=== PATIENT | female | born 1950 | race Caucasian/White ===

== ENCOUNTER 2017-03-01 10:50 | Outpatient (CLI) | payer MEDICARE, OTHER ==
--- NOTE | 2017-03-04 16:05 | Mammography Report ---
DIGITAL SCREENING MAMMOGRAM: 03/01/2017 CLINICAL INDICATION: A 66-year-old nulliparous patient for screening. COMPARISON: 01/2016, 02/2014, 04/2012, 07/2010, 11/2008 TECHNIQUE: Routine CC and MLO projections were obtained of the breasts as well as bilateral laterall y exaggerated craniocaudal views. FINDINGS: Parenchymal tissue within both breasts is extremely dense, which lowers the sensitivity of mammography; however, there are no dominant masses, suspicious microcalcifications, or secondary sig ns of malignancy. In comparison to the previous studies, there are no significant changes. IMPRESSION: No mammographic evidence of malignancy. PLAN: Screening mammography is recommended annually. BIRADS category 1 - negative. STANDARD QUALIFYING STATEMENTS 1. This examination was reviewed with the aid of Computed-Aided Detection (CAD). 2. A negative or benign imaging report should not delay biopsy if clinically suspicious findings are present. Consider surgical consultation if warranted. More than 5% of cancers are not identified by i maging. 3. Dense breasts may obscure an underlying neoplasm. JOB #: [id number] EXT JOB #:[id number]
== END 2017-03-01 10:51 | disposition home or self-care (01) ==
LOC: DI.S 10:50
PROVIDERS: ATTEND Physician Assistant
DX: Z12.31 Encounter for screening mammogram for malignant neoplasm of breast (principal)
CPT/HCPCS: 77067

== ENCOUNTER 2017-10-06 16:37 | Emergency (ER) | payer MEDICARE, OTHER ==
[2017-10-06 18:12] LABS: BILIRUBIN,URINE NEGATIVE (NEGATIVE); GLUCOSE, URINE (UA) NEGATIVE (NEGATIVE); KETONES,URINE (UA) NEGATIVE (NEGATIVE); LEUKOCYTE ESTERASE, URINE SMALL (NEGATIVE); NITRITE,URINE POSITIVE (NEGATIVE); OCCULT BLOOD,URINE TRACE-INTA (NEGATIVE); PH,URINE 6.5 PH (5.0-7.5); PROTEIN,URINE NEGATIVE (NEGATIVE); UROBILINOGEN,URINE 0.2 (NORMAL) E.U./dL (NORMAL)
[2017-10-06 18:14] LABS: CLARITY,URINE CLOUDY (CLEAR)
[2017-10-06 18:19] LABS: BACTERIA,URINE Few /HPF (None Seen); RBC,URINE 0-5 /HPF (0-5); SQUAMOUS EPITHELIAL CELL,UR NONE SEEN (<= Few)
--- NOTE | 2017-10-06 18:44 | ED Physician Documentation ---
PD HPI FEMALE - Stated complaint Stated Complaint: FEMALE - Chief complaint Chief Complaint: UTI - History obtained from History obtained from: Patient - History of Present Illness Timing - onset: How many days ago (several) Timing - duration: Days Timing - details: Gradual onset, Still present (feeling worse) Associated symptoms: Back pain, Dysuria, Urinary frequency. No: Fever, Abdominal pain Similar symptoms before: Diagnosis (uti) Recently seen: Clinic (2 days ago and Rx Bactrim for UTI. No apparent culture done.) Review of Systems Constitutional: reports: Myalgias, Fatigue. denies: Fever Nose: denies: Rhinorrhea / runny nose, Congestion Throat: denies: Sore throat Cardiac: denies: Chest pain / pressure, Palpitations Respiratory: denies: Dyspnea, Cough GI: reports: Nausea. denies: Abdominal Pain, Vomiting, Diarrhea : reports: Dysuria, Frequency. 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 - Present Medications Home Medications: Ambulatory Orders Medication Instructions Recorded Confirmed Cephalexin [Keflex] 500 mg PO QID #24 capsule 10/06/17 HYDROcod/ACETAM 5/325 [[place] 5/325] 1 tab PO Q6H PRN #12 tablet 10/06/17 Ondansetron Odt [Zofran] 4 mg TL Q6H PRN #15 tablet 10/06/17 Temazepam 7.5 mg DAILY 10/06/17 10/06/17 Valacyclovir HCl [Valacyclovir] 500 mg DAILY 10/06/17 10/06/17 - Allergies Allergies/Adverse Reactions: Allergies Allergy/AdvReac Type Severity Reaction Status Date / Time codeine Allergy Mild Nausea Verified 10/06/17 17:06 - Social History Does the pt smoke?: No Smoking Status: Never smoker Does the pt drink ETOH?: Yes Does the pt have substance abuse?: No - Immunizations Immunizations are current?: Yes - POLST Patient has POLST: No PD ED PE NORMAL - Vitals Vital signs reviewed: Yes - General General: Alert and oriented X 3, Well developed/nourished, Other (appears uncomfortable and expresses fatigue and weakness. ) - HEENT HEENT: Pharynx benign - Neck Neck: Supple, no meningeal sign, No adenopathy - Cardiac Cardiac: RRR, No murmur - Respiratory Respiratory: Clear bilaterally - Abdomen Abdomen: Normal bowel sounds, Soft, Non tender - Female Female : Deferred - Rectal Rectal: Deferred - Back Back: Other (mild CVA tenderness both sides. ) - Derm Derm: Normal color, Warm and dry - Extremities Extremities: No tenderness to palpate, Normal ROM s pain, No edema, No calf tenderness / cord - Neuro Neuro: Alert and oriented X 3, No motor deficit, Normal speech Results - Vitals Vitals: Oxygen O2 Source Room air - Labs Labs: Microbiology 10/06/17 17:50 Urine Culture - Final Urine,Clean Catch Escherichia Coli Laboratory Tests 10/06/17 10/06/17 10/06/17 17:50 19:12 19:12 WBC 7.4 RBC 3.99 L Hgb 13.2 Hct 39.7 MCV 99.6 H MCH 33.1 H MCHC 33.2 RDW 12.5 Plt Count 232 MPV 7.8 L Neut # (Auto) 5.1 Lymph # (Auto) 1.8 [place] # (Auto) 0.5 Eos # (Auto) 0.0 Baso # (Auto) 0.0 Absolute Nucleated RBC 0.00 Nucleated RBC % 0.0 Sodium 132 L Potassium 4.5 Chloride 99 L Carbon Dioxide 24 Anion Gap 9.0 BUN 6 Creatinine 0.7 Estimated GFR (MDRD) 84 L Glucose 112 H Lactic Acid Calcium 9.2 Total Bilirubin 0.8 AST 23 ALT 36 Alkaline Phosphatase 94 Total Protein 6.9 Albumin 4.4 Globulin 2.5 Albumin/Globulin Ratio 1.8 Lipase 23 Urine Color YELLOW Urine Clarity CLOUDY Urine pH 6.5 Ur Specific [place] 1.010 Urine Protein NEGATIVE Urine Glucose (UA) NEGATIVE Urine Ketones NEGATIVE Urine Occult Blood TRACE-INTA Urine Nitrite POSITIVE H Urine Bilirubin NEGATIVE Urine Urobilinogen 0.2 (NORMAL) Ur Leukocyte Esterase SMALL H Urine RBC 0-5 Urine WBC 11-25 H Ur Squamous Epith Cells NONE SEEN Urine Bacteria Few Ur Microscopic Review INDICATED Urine Culture Comments INDICATED 10/06/17 19:12 WBC RBC Hgb Hct MCV MCH MCHC RDW Plt Count MPV Neut # (Auto) Lymph # (Auto) [place] # (Auto) Eos # (Auto) Baso # (Auto) Absolute Nucleated RBC Nucleated RBC % Sodium Potassium Chloride Carbon Dioxide Anion Gap BUN Creatinine Estimated GFR (MDRD) Glucose Lactic Acid 0.8 Calcium Total Bilirubin AST ALT Alkaline Phosphatase Total Protein Albumin Globulin Albumin/Globulin Ratio Lipase Urine Color Urine Clarity Urine pH Ur Specific [place] Urine Protein Urine Glucose (UA) Urine Ketones Urine Occult Blood Urine Nitrite Urine Bilirubin Urine Urobilinogen Ur Leukocyte Esterase Urine RBC Urine WBC Ur Squamous Epith Cells Urine Bacteria Ur Microscopic Review Urine Culture Comments PD MEDICAL DECISION MAKING - ED course Complexity details: reviewed results, re-evaluated patient (feeling improved with some fluids and pain meds/antiemetics. ), considered differential (has UTI symptoms and then seems in pain generally and feeling weak, but does not seem septic per se. ), d/w patient Departure - Departure Disposition: Home, Self Care Clinical Impression: Pyelonephritis Urinary tract infection Qualifiers: Urinary tract infection type: site unspecified Hematuria presence: without hematuria Qualified Code(s): N39.0 - Urinary tract infection, site not specified Condition: Stable Record reviewed to determine appropriate education?: Yes Instructions: ED UTI Cystitis Female Follow-Up: Aleena Claire PA [Primary Care Provider] - Prescriptions: Cephalexin [Keflex] 500 mg PO QID #24 capsule HYDROcod/ACETAM 5/325 [[place] 5/325] 1 tab PO Q6H PRN #12 tablet PRN Reason: Pain Ondansetron Odt [Zofran] 4 mg TL Q6H PRN #15 tablet PRN Reason: Nausea / Vomiting Comments: Drink lots of fluids. Ondansetron if needed for nausea. Cephalexin as prescribed for the urinary tract infection. Add Tylenol or hydrocodone if needed for pain. Recheck if not improving over the next couple of days and return sooner if worsening. Discharge Date/Time: 10/06/17 21:16
[2017-10-06] MEDS ORDERED: SODIUM CHLORIDE 0.9% 1,000 ML IV ONE (18:55)
[2017-10-06] MEDS ORDERED: cefTRIAXone 1 GM in SODIUM CHLORIDE 0.9% MINIBAG 100 ML IV STA (18:56)
[2017-10-06] MEDS ORDERED: HYDROmorphone 2 MG/ML VIAL IVP STA (18:56)
[2017-10-06] MEDS ORDERED: ONDANSETRON 4 MG/2 ML VIAL IVP STA ×2 (18:56→20:41)
[2017-10-06] MEDS ORDERED: KETOROLAC 60 MG/2 ML VIAL IVP STA (18:57)
[2017-10-06 19:21] LABS: BASOPHILS % (AUTO) 0.3 %; EOSINOPHILS % (AUTO) 0.4 %; HGB - HEMOGLOBIN 13.2 g/dL (12.0-16.0); LYMPHOCYTES # (AUTO) 1.8 10^3/uL (1.5-3.5); LYMPHOCYTES % (AUTO) 24.5 %; MEAN CORPUSCULAR HEMOGLOBIN 33.1 pg (27.0-31.0); MEAN CORPUSCULAR HGB CONC 33.2 g/dL (32.0-36.0); MEAN CORPUSCULAR VOLUME 99.6 fL (81.0-99.0); MEAN PLATELET VOLUME 7.8 fL (7.9-10.8); MONOCYTES # (AUTO) 0.5 10^3/uL (0.0-1.0); MONOCYTES % (AUTO) 6.6 %; NEUTROPHILS # (AUTO) 5.1 10^3/uL (1.5-6.6); NEUTROPHILS % (AUTO) 68.2 %; PLT - PLATELET COUNT 232 10^3/uL (130-450); RED BLOOD COUNT 3.99 10^6/uL (4.20-5.40); RED CELL DISTRIBUTION WIDTH 12.5 % (12.0-15.0); WHITE BLOOD COUNT 7.4 x10^3/uL (4.8-10.8)
[2017-10-06 19:37] LABS: ALBUMIN 4.4 g/dL (3.2-5.5); ALBUMIN/GLOBULIN RATIO 1.8 (1.0-2.2); BILIRUBIN,TOTAL 0.8 mg/dL (0.2-1.0); CALCIUM 9.2 mg/dL (8.5-10.3); CREATININE 0.7 mg/dL (0.4-1.0); TOTAL PROTEIN 6.9 g/dL (6.7-8.2)
[2017-10-06] MEDS ORDERED: ONDANSETRON ODT 4 MG Prepack 2 TL PRN (20:42)
[2017-10-06] MEDS ORDERED: HYDROcod/ACET 5/325 Prepack 4 PO STA (20:42)
[2017-10-06 21:16] VITALS: BP 134/75
== END 2017-10-06 21:16 | disposition home or self-care (01) ==
LOC: ED 16:37
DX: N12 Tubulo-interstitial nephritis, not specified as acute or chronic (principal); N39.0 Urinary tract infection, site not specified
CPT/HCPCS: 36415; 80053; 81001; 83605; 83690; 85025; 87077; 87086; 87181; 96365; 96375; 96376; 99283; J1170; 81003

== ENCOUNTER 2017-11-07 12:08 | Outpatient (CLI) | payer MEDICARE, OTHER | END 2017-11-07 12:09 | disposition critical access hospital (66) | LOC: EMS 12:08 | PROVIDERS: ATTEND Surgery | DX: R10.31 Right lower quadrant pain (principal); V91.83XA Other injury due to other accident to other powered watercraft, initial encounter; V91.23XA Fall due to collision between other powered watercraft and other watercraft or other object, initial encounter; Y92.832 Beach as the place of occurrence of the external cause; Y93.19 Activity, other involving water and watercraft | CPT/HCPCS: A0425; A0429 ==

== ENCOUNTER 2017-11-07 12:44 | Emergency (ER) | payer MEDICARE, OTHER ==
[2017-11-07] MEDS ORDERED: KETOROLAC 60 MG/2 ML VIAL IM STA (12:49)
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
[2017-11-07 13:50] LABS: BILIRUBIN,URINE NEGATIVE (NEGATIVE); GLUCOSE, URINE (UA) NEGATIVE (NEGATIVE); KETONES,URINE (UA) NEGATIVE (NEGATIVE); LEUKOCYTE ESTERASE, URINE NEGATIVE (NEGATIVE); NITRITE,URINE NEGATIVE (NEGATIVE); OCCULT BLOOD,URINE SMALL (NEGATIVE); PROTEIN,URINE NEGATIVE (NEGATIVE); UROBILINOGEN,URINE 0.2 (NORMAL) E.U./dL (NORMAL)
[2017-11-07 13:53] LABS: CLARITY,URINE CLEAR (CLEAR)
[2017-11-07 14:01] LABS: BACTERIA,URINE Few /HPF (None Seen); RBC,URINE 0-5 /HPF (0-5); SQUAMOUS EPITHELIAL CELL,UR MOD Squamous (<= Few)
--- NOTE | 2017-11-07 14:07 | XRAY Report ---
Procedure Date: 11/07/2017 Accession Number: [id number] / [id number] Procedure: XR - Ribs w/PA Chest RT CPT Code: FULL RESULT: EXAM: RIGHT RIB RADIOGRAPHY EXAM DATE: 11/07/2017 01:55 PM. CLINICAL HISTORY: R chest pain, trauma. COMPARISON: None. TECHNIQUE: 1 view of the chest and 2 views of the ribs. FINDINGS: Bones: Normal. No fracture or bone lesion. Lungs: No focal opacities. No pneumothorax. No pleural effusions. Mediastinum: Heart and mediastinal contours are unremarkable. Other: None. IMPRESSION: No rib fracture or pneumothorax. RADIA
[2017-11-07] MEDS ORDERED: oxyCOD/ACETAMIN 5 MG/325 MG TABLET PO STA (14:16)
[2017-11-07 14:29] VITALS: BP 169/92
== END 2017-11-07 14:31 | disposition home or self-care (01) ==
LOC: EDUNIT# → EDBD → ED 12:44
DX: S20.211A Contusion of right front wall of thorax, initial encounter (principal); W22.8XXA Striking against or struck by other objects, initial encounter; V94.4XXA Injury to barefoot water-skier, initial encounter; Y93.17 Activity, water skiing and wake boarding; Y92.89 Other specified places as the place of occurrence of the external cause; R03.0 Elevated blood-pressure reading, without diagnosis of hypertension
CPT/HCPCS: 71101; 81001; 96372; 99283; A9270; 81003; 87086

== ENCOUNTER 2017-11-14 15:13 | Outpatient (CLI) | payer MEDICARE, OTHER ==
[2017-11-14 15:34] LABS: BASOPHILS % (AUTO) 0.6 %; EOSINOPHILS % (AUTO) 0.2 %; HGB - HEMOGLOBIN 13.7 g/dL (12.0-16.0); LYMPHOCYTES # (AUTO) 2.7 10^3/uL (1.5-3.5); LYMPHOCYTES % (AUTO) 33.2 %; MEAN CORPUSCULAR HEMOGLOBIN 33.5 pg (27.0-31.0); MEAN CORPUSCULAR VOLUME 101.7 fL (81.0-99.0); MEAN PLATELET VOLUME 7.9 fL (7.9-10.8); MONOCYTES # (AUTO) 0.4 10^3/uL (0.0-1.0); MONOCYTES % (AUTO) 5.3 %; NEUTROPHILS # (AUTO) 4.9 10^3/uL (1.5-6.6); NEUTROPHILS % (AUTO) 60.7 %; PLT - PLATELET COUNT 260 10^3/uL (130-450); RED BLOOD COUNT 4.07 10^6/uL (4.20-5.40); RED CELL DISTRIBUTION WIDTH 13.2 % (12.0-15.0); WHITE BLOOD COUNT 8.1 x10^3/uL (4.8-10.8)
[2017-11-14 15:41] LABS: ALBUMIN/GLOBULIN RATIO 1.5 (1.0-2.2); BILIRUBIN,TOTAL 0.8 mg/dL (0.2-1.0); CALCIUM 9.1 mg/dL (8.5-10.3); CREATININE 0.6 mg/dL (0.4-1.0); TOTAL PROTEIN 6.7 g/dL (6.7-8.2)
[2017-11-14] MEDS ORDERED: IOPAMIDOL-300 50 ML VIAL ONE (15:42)
[2017-11-14] MEDS ORDERED: IOPAMIDOL-300 100 ML VIAL ONE (15:42)
[2017-11-14] MEDS ORDERED: IOPAMIDOL-300 50 ML VIAL PO ONE (17:03)
[2017-11-14] MEDS ORDERED: IOPAMIDOL-300 100 ML VIAL IVP ONE (17:05)
--- NOTE | 2017-11-14 17:20 | CT Report ---
Procedure Date: 11/14/2017 Accession Number: [id number] / [id number] Procedure: CT - Abdomen/Pelvis W/ CPT Code: FULL RESULT: EXAM: CT ABDOMEN AND PELVIS EXAM DATE: 11/14/2017 04:40 PM. CLINICAL HISTORY: TRAUMA,CHEST,BACK ABD PAIN. COMPARISONS: 03/01/2006 CT abdomen and pelvis. TECHNIQUE: Routine helical CT imaging was performed through the abdomen and pelvis. IV contrast: ISOVUE 300 100mL. Enteric contrast: No. Reconstructions: Coronal and sagittal. In accordance with CT protocol optimization, one or more of the following dose reduction techniques were utilized for this exam: automated exposure control, adjustment of mA and/or KV based on patient size, or use of iterative reconstructive technique. FINDINGS: Lung Bases: Trace bilateral pleural effusions. Liver: Normal. No masses. Gallbladder/Bile Ducts: Unremarkable. Spleen: Normal. Pancreas: Normal. Adrenal Glands: Normal. Kidneys: Subcentimeter right renal hypodensities most likely representing cysts. No evidence of hydronephrosis or acute injury. Peritoneal Cavity/Bowel: Normal. No free fluid, free air or adenopathy. No masses or acute inflammatory process. The appendix is well visualized and normal. Pelvic Organs: The uterus has been removed. The urinary bladder is unremarkable. No fluid collections. Vasculature: Mild atherosclerotic changes seen throughout the abdominal aorta and common iliac arteries however no evidence of aneurysm. Bones: Mild compression deformity of the L1 superior endplate which appears chronic. Otherwise no acute fracture seen. Other: None. IMPRESSION: 1. No acute solid or hollow abdominal viscera trauma. 2. Trace bilateral pleural effusions. RADIA The call report notification system was initiated by Dr. Ashu Sanford at 17:16 hrs on 11/14/17. The above findings were discussed with Aleena Claire by Dr. Ashu Sanford at 17:18 hrs on 11/14/17.
--- NOTE | 2017-11-15 01:56 | CT Report ---
Procedure Date: 11/14/2017 Accession Number: [id number] / [id number] Procedure: CT - Chest W/ CPT Code: FULL RESULT: EXAM: CT CHEST EXAM DATE: 11/14/2017 04:40 PM. CLINICAL HISTORY: TRAUMA,CHEST BACK ABD PAIN. COMPARISONS: None. TECHNIQUE: Routine helical CT imaging was performed through the chest. IV contrast: 100 mL Isovue-300. Reconstructions: Coronal and sagittal. In accordance with CT protocol optimization, one or more of the following dose reduction techniques were utilized for this exam: automated exposure control, adjustment of mA and/or KV based on patient size, or use of iterative reconstructive technique. FINDINGS: Lungs/Pleura: No nodules, bronchial thickening, consolidation, or edema. Pulmonary vasculature is normal. Trace bilateral pleural effusions. Atelectatic changes at the lung bases. Mediastinum: Normal. No adenopathy or masses. The heart and great vessels are normal. Bones: Unremarkable. Visualized Abdomen: Unremarkable. Other: None. IMPRESSION: 1. Trace bilateral pleural effusions. 2. Otherwise unremarkable chest CT. RADIA The call report notification system was initiated by Dr. Ashu Sanford at 17:10 hrs on 11/14/17. The above findings were discussed with Aleena Claire by Dr. Ashu Sanford at 01:55 hrs on 11/15/17.
== END 2017-11-14 15:14 | disposition home or self-care (01) ==
LOC: DI 15:13
PROVIDERS: ATTEND Physician Assistant
DX: S29.9XXA Unspecified injury of thorax, initial encounter (principal); R07.9 Chest pain, unspecified; R10.9 Unspecified abdominal pain; J90 Pleural effusion, not elsewhere classified
CPT/HCPCS: 36415; 71260; 74177; 80053; 82150; 83690; 85025; Q9967

== ENCOUNTER 2018-12-26 13:42 | Outpatient (CLI) | payer SELFPAY ==
--- NOTE | 2018-12-28 03:09 | XRAY Report ---
Reason: Left anterior rib pain Procedure Date: 12/26/2018 Accession Number: [id number] / [id number] Procedure: XR - Ribs w/PA Chest LT CPT Code: FULL RESULT: EXAM: LEFT RIB RADIOGRAPHY EXAM DATE: 12/26/2018 02:02 PM. CLINICAL HISTORY: Left anterior rib pain. COMPARISON: RIBS W/PA CHEST RT 11/07/2017 1:30 PM. TECHNIQUE: 1 view of the chest and 2 views of the ribs. FINDINGS: Bones: Possible subtle nondisplaced left sixth rib fracture. Lungs: No alveolar consolidation or pleural effusion seen. No pneumothorax. Mediastinum: Within exam limitations, heart size appears normal. Aortic atherosclerosis. Other: None. IMPRESSION: 1. Possible subtle nondisplaced left anterior sixth rib fracture. RADIA
== END 2018-12-26 13:43 | disposition home or self-care (01) ==
LOC: DI 13:42
PROVIDERS: ATTEND Family Medicine
DX: R07.81 Pleurodynia (principal)

== ENCOUNTER 2019-03-03 11:39 | Outpatient (CLI) | payer SELFPAY ==
--- NOTE | 2019-03-03 16:46 | XRAY Report ---
Reason: INJURY OF THORAX Procedure Date: 03/03/2019 Accession Number: [id number] / [id number] Procedure: XR - Ribs w/PA Chest LT CPT Code: FULL RESULT: EXAM: LEFT RIB RADIOGRAPHY EXAM DATE: 03/03/2019 12:02 PM. CLINICAL HISTORY: INJURY OF THORAX. COMPARISON: RIBS W/PA CHEST LT 12/26/2018 1:49 PM. TECHNIQUE: 1 view of the chest and 2 views of the ribs. FINDINGS: Bones: Normal. No fracture or bone lesion. Lungs: No focal opacities. No pneumothorax. No pleural effusions. Mediastinum: Heart and mediastinal contours are unremarkable. Other: None. IMPRESSION: Normal chest and rib radiography. RADIA
== END 2019-03-03 11:40 | disposition home or self-care (01) ==
LOC: DI 11:39
PROVIDERS: ATTEND Family Medicine
DX: S29.9XXD Unspecified injury of thorax, subsequent encounter (principal)

== ENCOUNTER 2022-02-14 10:13 | Outpatient (CLI) | payer MEDICARE, OTHER ==
--- NOTE | 2022-02-15 08:05 | XRAY Report ---
PROCEDURE: Elbow 3 View RT INDICATIONS: FELL ON ELBOW TECHNIQUE: 3 views of the elbow were acquired. COMPARISON: none FINDINGS: Bones: No fractures or dislocations. No suspicious bony lesions. Soft tissues: No elbow joint effusion. No suspicious soft tissue calcifications. IMPRESSION: No visualized acute fracture or dislocation. However, occult injury cannot be excluded. Recommend ynes rt interval imaging follow-up in 7-10 days as clinically indicated for additional evaluation. Reviewed by: Rand Eastman MD on 02/15/2022 8:03 AM PDT Approved by: Rand Eastman MD on 02/15/2022 8:03 AM PDT Station ID: [id number]
== END 2022-02-14 10:14 | disposition home or self-care (01) ==
LOC: DI 10:13
PROVIDERS: ATTEND Family Medicine
DX: S50.01XA Contusion of right elbow, initial encounter (principal)

== ENCOUNTER 2022-09-08 18:59 | Outpatient (CLI) | payer MEDICARE, OTHER | END 2022-09-08 19:00 | disposition EMS.NT | LOC: EMS 18:59 | DX: S01.81XA Laceration without foreign body of other part of head, initial encounter (principal); W18.39XA Other fall on same level, initial encounter; Y92.89 Other specified places as the place of occurrence of the external cause ==

== ENCOUNTER 2022-10-25 12:35 | Outpatient (CLI) | payer MEDICARE, OTHER ==
--- NOTE | 2022-10-26 12:38 | Ultrasound Report ---
LIMITED ULTRASOUND OF LEFT BREAST: 10/25/2022 CLINICAL: Palpable left breast lump. Comparison is made to exams dated: 10/25/2022 mammogram, 03/01/2017 mammogram, 01/17/2016 mammogram, a nd 02/16/2014 mammogram - [facility]. Color flow ultrasound of the left breast 2 o'clock region was performed. Nick scale images of the r eal-time examination were reviewed. There is a 1 cm x 0.6 cm x 0.3 cm oval mass with a circumscribed margin in the left breast at 2 o'nathalia ck posterior depth 9 cm from the nipple. This oval mass is hypoechoic with fatty hilum. This correl ates as palpated. IMPRESSION: PROBABLY BENIGN The 1 cm x 0.6 cm x 0.3 cm oval mass in the left breast has a differential diagnosis of a complicated cyst or a lymph node and is probably benign. A follow-up left ultrasound in 6 months is recommended to demonstrate stability. This exam was interpreted at Station ID: [id number]. Electronically Signed By: Elijah ho/brittany:10/25/2022 14:43:48 Ultrasound BI-RADS: 3 Probably benign BI-RADS CATEGORY: (3) - 3 Ultrasound [id number] 6 month follow-up LATERALITY: (L)
--- NOTE | 2022-10-26 12:38 | Mammography Report ---
BILATERAL DIGITAL DIAGNOSTIC MAMMOGRAM 3D/2D: 10/25/2022 CLINICAL: Palpable left breast lump. Comparison is made to exams dated: 03/01/2017 mammogram, 01/17/2016 mammogram, and 02/16/2014 mammogr am - [facility]. Both breasts are heterogeneously dense, which may obscure small masses (category c / 51-75% glandular tissue). No significant masses, calcifications, or other findings are seen in either breast. IMPRESSION: INCOMPLETE: NEEDS ADDITIONAL IMAGING EVALUATION There is no abnormality seen in the left breast to correspond with the palpable abnormality, however, ultrasound is recommended. Based on the Tyrer Cuzick model (a risk assessment model) the patients lifetime risk is 6.7% and her 10 year risk is 4.2%. According to the ACR, ACS, and NCCN guidelines, an annual breast MRI exam lonnie g with mammogram is recommended if the patients lifetime risk is 20% or greater. This exam was interpreted at Station ID: [id number]. NOTE: For mammograms, a report in lay terms will be sent to the patient. Approximately 15% of breast malignancies will not be visualized mammographically. In the management of a palpable breast mass, a negative mammogram must not discourage biopsy of a clinically suspicious lesion. Electronically Signed By: Elijah ho/brittany:10/25/2022 14:42:02 ACR BI-RADS Category 0: Incomplete 3340F PARENCHYMAL PATTERN: (D) - The breast(s) demonstrate(s) heterogeneously dense fibroglandular parjaimey ma. BI-RADS CATEGORY: (0) - 0 Ultrasound [id number] Immediate follow-up LATERALITY: (L)
== END 2022-10-25 12:36 | disposition home or self-care (01) ==
LOC: DI 12:35
PROVIDERS: ATTEND Student in an Organized Health Care Education/Training Program
DX: N63.21 Unspecified lump in the left breast, upper outer quadrant (principal)

== ENCOUNTER 2023-01-15 13:53 | Outpatient (CLI) | payer MEDICARE, OTHER ==
--- NOTE | 2023-01-15 15:48 | MRI Report ---
PROCEDURE: THORACIC SPINE WO INDICATIONS: COLLAPSED VERTEBRA TECHNIQUE: Noncontrast sagittal T1 spine echo and T2 fast spin echo, sagittal STIR, axial T1 and T2 fast spin ec ho through the thoracic spine. COMPARISON: Thoracic spine x-ray 11/21/2022. FINDINGS: Image quality: Excellent. Alignment and Curvature: There is normal bony alignment. Bone Marrow: Marrow is of normal overall signal. Superior endplate compression deformity at T12 is u nchanged. There is no abnormal signal to suggest acute chronicity. Spinal Cord: Visualized spinal cord is normal in size and signal. Paraspinous Soft Tissues: No paravertebral masses. Miscellaneous: On axial images, central canal and foramina appear widely patent at all scanned level s. IMPRESSION: Chronic T12 compression deformity stable. Reviewed by: Rand Eastman MD on 01/15/2023 3:47 PM PDT Approved by: Rand Eastman MD on 01/15/2023 3:47 PM PDT Station ID: [id number]
--- NOTE | 2023-01-15 20:39 | DEXA Report ---
PROCEDURE: Dexa Spine and/or Hip INDICATIONS: POST MENOPAUSAL THORACIC COMPRESSION FX TECHNIQUE: Dual energy x-ray absorptiometry (DEXA) was performed in the regions detailed below. COMPARISON: None. FINDINGS: Lumbar Spine: Bone Mineral Density 1.055 g/cm/cm,T score -1.0. Low normal Left Femoral Neck: Bone Mineral Density 0.630 g/cm/cm, T score -2.9. Osteoporosis Left Hip: Bone Mineral Density 0.710 g/cm/cm,T score -2.4. Osteopenia (T score greater or equal to -1.0: NORMAL) (T score from -1.1 to -2.4: OSTEOPENIA) (T score less than or equal to -2.5 to: OSTEOPOROSIS) IMPRESSION: Osteoporosis Patients with diagnosis of osteoporosis or osteopenia should have regular bone mineral density assess ment. For those eligible for Medicare, routine testing is allowed once every 2 years. Testing frequ ency can be increased for patients who have rapidly progressing disease or for those who are receivin g medical therapy to restore bone mass. Reviewed by: Alexandre Rivas MD on 01/15/2023 7:38 PM ABIMAEL Approved by: Alexandre Rivas MD on 01/15/2023 7:38 PM ABIMAEL Station ID: [id number]
== END 2023-01-15 13:54 | disposition home or self-care (01) ==
LOC: DI 13:53
PROVIDERS: ATTEND Family Medicine
DX: Z78.0 Asymptomatic menopausal state (principal); M81.0 Age-related osteoporosis without current pathological fracture; M48.54XD Collapsed vertebra, not elsewhere classified, thoracic region, subsequent encounter for fracture with routine healing

== ENCOUNTER 2023-06-04 12:29 | Outpatient (CLI) | payer MEDICARE, OTHER ==
--- NOTE | 2023-06-05 14:50 | Ultrasound Report ---
LIMITED ULTRASOUND OF LEFT BREAST: 06/04/2023 CLINICAL: Follow up from addtional views. Comparison is made to exams dated: 10/25/2022 ultrasound, 10/25/2022 mammogram, 03/01/2017 mammogram, 01/17/2016 mammogram, and 02/16/2014 mammogram - [facility]. Color flow and real-time ultrasound of the left breast 2 o'clock region were performed. Nick scale images of the real-time examination were reviewed. The previously seen 1.0 cm oval mass with a circumscribed margin in the left breast at 2 o'clock, 9 c m from the nipple is no longer visualized. This finding previously correlated as palpable, which pat ient reports has clinical resolved. IMPRESSION: NEGATIVE Previously described probably benign 1.0 cm mass is no longer visualized. Finding previously correlat ed as palpable, which patient reports has clinical resolved. No targeted sonographic evidence of azucena gnancy. Return to annual mammogram screening schedule is recommended, which patient will be due for in October 05. Findings and recommendations were conveyed to the patient during today's evaluation. This exam was interpreted at Station ID: [id number]. Electronically Signed By: Olesya Araya M.D., PH.D eb/:06/04/2023 13:51:49 Ultrasound BI-RADS: 1 Negative BI-RADS CATEGORY: (1) - 1 RECOMMENDATION: (ANNUAL) - Recommend routine annual screening mammography. [id number] return to screening LATERALITY: (B)
== END 2023-06-04 12:30 | disposition home or self-care (01) ==
LOC: DI 12:29
PROVIDERS: ATTEND Student in an Organized Health Care Education/Training Program
DX: R92.8 Other abnormal and inconclusive findings on diagnostic imaging of breast (principal)

== ENCOUNTER 2023-06-17 14:42 | Outpatient (CLI) | payer MEDICARE, OTHER ==
--- NOTE | 2023-06-17 17:47 | XRAY Report ---
PROCEDURE: Hip w/Pelvis 2-3V LT INDICATIONS: LEFT HIP PAIN TECHNIQUE: 3 views of the hip were acquired. COMPARISON: None. FINDINGS: Bones: No fractures or dislocations. Mild bilateral hip joint space narrowing and juxta-articular os teophytosis. Mild degenerative changes of the lower lumbar spine and bilateral SI joints. No suspicio us bony lesions. Soft tissues: No suspicious soft tissue calcifications or masses. IMPRESSION: 1.No acute bony abnormality. If there is high clinical suspicion for a radiographically occult fractu re, consider cross-sectional imaging for further evaluation. 2.Mild bilateral hip osteoarthritis. Reviewed by: Sara Mullins MD on 06/17/2023 5:46 PM PST Approved by: Sara Mullins MD on 06/17/2023 5:46 PM PST Station ID: [id number]
== END 2023-06-17 14:43 | disposition home or self-care (01) ==
LOC: DI 14:42
PROVIDERS: ATTEND Family Medicine
DX: M16.0 Bilateral primary osteoarthritis of hip (principal)

== ENCOUNTER 2023-08-08 08:51 | Outpatient (CLI) | payer MEDICARE, OTHER ==
--- NOTE | 2023-08-08 12:02 | MRI Report ---
PROCEDURE: Hip LT WO INDICATIONS: L HIP PAIN TECHNIQUE: Noncontrast coronal T1 spin echo and STIR through the bony pelvis. Coronal and axial T2 fast spin ec ho with fat saturation, sagittal T1 spin echo, and oblique axial T2 fast spin echo with fat saturatio n through the hip. COMPARISON: Left hip radiograph dated 06/17/2023. FINDINGS: Image quality: Excellent. Bones and joints: Moderate bilateral hip joint osteoarthritic changes are seen. No marrow edema. No i ntraosseous lesions or fractures. No avascular necrosis of the femoral heads. The visualized lower lumbar spine appears normally aligned. Tendons: Tendinosis and low-grade partial-thickness tear involving distal left gluteus medius and min imus tendons at their insertions on greater trochanter extending to musculotendinous junction. The il iopsoas tendon appears intact, without adjacent bursal fluid collections. Mild tendinosis involving l eft hamstring tendon origins at ischial tuberosity. Labrum and cartilage: Fraying of superior anterior labrum with T2 hyperintense signal at 1-2 o'clock position suggestive of superior anterior labral tear. Thinning of articulating cartilage over right f emoral head is also seen. The alpha angle of the femur is within normal limits at less than 55 degree s. Soft tissues: There is low-grade partial-thickness tear involving medial portion of left adductor mag nus muscle. [place] muscle or tendon signal abnormality is seen. Proximal sciatic neurovascular bundle appears normal adjacent to the hamstring tendons. No free pelvic fluid. Bladder wall thickness is normal. Genitourinary structures and bowel loops appear normal where visualized. IMPRESSION: 1. Moderate bilateral hip joint osteoarthritis. No pelvic or hip fracture. No hip dislocation. No garret dence of avascular necrosis. 2. Tendinosis and low-grade partial-thickness involving distal left gluteus medius and minimus tendon s extending to musculotendinous junction. Low-grade strain/partial thickness tear involving medial po rtion of left adductor kelly muscle. 3. Suggestion of superior anterior left hip labral tear at 1 to 2:00 position. Reviewed by: Mikael Barriga MD on 08/08/2023 12:00 PM PDT Approved by: Mikael Barriga MD on 08/08/2023 12:00 PM PDT Station ID: [id number]
== END 2023-08-08 08:52 | disposition home or self-care (01) ==
LOC: DI 08:51
PROVIDERS: ATTEND Family Medicine
DX: M16.0 Bilateral primary osteoarthritis of hip (principal); S76.012A Strain of muscle, fascia and tendon of left hip, initial encounter

== ENCOUNTER 2025-02-26 09:24 | Inpatient (IN) ==
[2025-02-26] MEDS: LACTATED RINGERS 1,000 ML IV PRN (09:33)
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
[2025-02-26] MEDS ORDERED: PROPOFOL 500 MG/50 ML 500 MG/50 ML VIAL ONE (11:52)
[2025-02-26] MEDS ORDERED: MIDAZOLAM 2 MG/2 ML VIAL ONE (11:53)
[2025-02-26] MEDS ORDERED: LIDOCAINE-MPF 2% 5 ML VIAL ONE (11:54)
--- NOTE | 2025-02-26 11:57 | Preop H&P Attestation ---
Preop H&P Attestation Preop History & Physical Preop H&P Date: 02/16/25 History & Physical Reviewed and patient examined today.: No change -: Patient seen in preoperative holding area. No changes to the H&P with date referenced above. Proceed to OR for colonoscopy. Soha Cannon DO, FACS General Surgeon, [facility]
[2025-02-26] MEDS ORDERED: fentaNYL 100 MCG/2 ML VIAL ONE (12:02)
[2025-02-26] MEDS ORDERED: METHYLENE BLUE 0.5% 50 MG/10 ML AMPULE ONE (12:24)
[2025-02-26] MEDS ORDERED: ONDANSETRON 4 MG/2 ML VIAL IVP PRN (12:35)
[2025-02-26] MEDS ORDERED: PROPOFOL 200 MG/20 ML VIAL IVP ONE (12:50)
--- NOTE | 2025-02-26 13:12 | ANESTHESIA POST OP EVALUATION ---
Anesthesia Post Eval Post Anesthesia Eval Vitals: Last Vital Signs Temp 36.9 C 02/26/25 09:48 Pulse 117 H 02/26/25 09:48 Resp 16 02/26/25 09:48 BP 187/113 H 02/26/25 09:48 Pulse Ox 98 02/26/25 09:48 CV Function Including HR & BP: Stable Pain Control: Satisfactory Nausea & Vomiting: Negative Mental Status: Baseline Respiratory Status: Airway Patent Hydration Status: Satisfactory Anesthesia Complications: None
[2025-02-26] MEDS ORDERED: oxyCODONE 5 MG TABLET ONE (13:18)
[2025-02-26] MEDS ORDERED: ACETAMINOPHEN 500 MG TABLET ONE (13:19)
[2025-02-26] MEDS: oxyCODONE 5 MG TABLET PO PRN (13:25)
[2025-02-26] MEDS: ACETAMINOPHEN 500 MG TABLET PO PRN (13:26)
[2025-02-26] MEDS ORDERED: oxyCODONE 5 MG TABLET PO PRN (15:39)
[2025-02-26] MEDS ORDERED: LIDOCAINE 2% URO-JET 5 ML SYRINGE UR PRN (15:46)
[2025-02-26] MEDS: HYDROmorphone 0.5 MG/0.5 ML SYRINGE IVP PRN (16:00)
--- NOTE | 2025-02-26 16:26 | PHARMACY PROGRESS NOTE ---
Best Possible Medication History Admit Date and Time: 02/26/25 1426 Home Medications Medication Instructions Recorded Confirmed Type valacyclovir 500 mg tablet 500 mg PO DAILY 10/06/17 History oxycodone-acetaminophen 5 mg-325 1 - 2 tab PO Q4H PRN Pain #15 tabs 11/07/17 02/22/25 Rx mg tablet (Percocet) diazepam 10 mg tablet (Valium) 5 mg PO TID PRN anxiety 12/22/24 02/26/25 History losartan 50 mg tablet 50 mg PO QDAY 12/22/2402/22 History meloxicam 15 mg tablet 15 mg PO QDAY PRN as needed 12/22/24 02/22/25 History pravastatin 10 mg tablet 10 mg PO QDAY 12/22/2402/26 History propranolol 10 mg tablet 40 mg PO .QD 12/22/24 History estradiol 0.01% (0.1 mg/gram) See Rx Instructions .Rou te 12/25/24 02/22/25 Rx vaginal cream (Estrace) .COMPLEX #42.5 grams lidocaine HCl 2 % mucosal jelly in 1 applic topical .d aily PRN 12/25/24 02/22/25 Rx applicator vaginal pain #125 mL acetaminophen 325 mg capsule 325 - 650 mg (1 - 2 x 325 mg) PO 02/09/25 02/22/25 Rx Q4H PRN pain #60 caps sodium,potassium,mag sulfates 17.5 See Rx Instructions PO .COMPLEX 02/16/25 02/22/25 Rx gram-3.13 gram-1.6 gram oral soln #354 mL (Suprep Bowel Prep Kit) temazepam 15 mg capsule 15 mg PO QPM 02/26/25 History Processed by: Pharmacy Medications reviewed in ED?: No Medication History completed: Yes Patient Interview: Completed Secondary Source(s): Pharmacy records and Insurance records [facility] Statement: As the person ultimately responsible for medication therapy, providers are able to order a medication from an existing home medication list in [facility] via the "Reconcile Routine" prior to Confirmation of that medication by it support manager. Such practice is discouraged except when the physician, in their clinical judgment, deems that a medical need exists for a medication without regard to previous use.
[2025-02-26] MEDS: D5.45NS W/20 MEQ KCL 1,000 ML IV SCH (16:41)
[2025-02-26] MEDS: METOPROLOL 5 MG/5 ML VIAL IVP PRN (16:45)
[2025-02-26] MEDS: ACETAMINOPHEN 1,000 MG/100 ML 1,000 MG/100 ML BAG IV SCH (16:55)
[2025-02-26] MEDS: SODIUM CHLORIDE FLUSH 0.9% 10 ML SYRINGE IVP SCH (19:12)
[2025-02-26] MEDS: CIPROFLOXACIN 250 MG TABLET PO ONE (20:56)
[2025-02-26] MEDS: PRAVASTATIN 10 MG TABLET PO SCH (20:58)
[2025-02-26] MEDS: TEMAZEPAM 15 MG CAPSULE PO SCH (20:59)
[2025-02-26] MEDS: hydrALAZINE INJ 20 MG/ML VIAL IVP PRN (21:02)
[2025-02-27 05:51] LABS: HCT - HEMATOCRIT 39.1 % (37.0-47.0); HGB - HEMOGLOBIN 12.4 g/dL (12.0-16.0); MEAN PLATELET VOLUME 9.2 fL (7.9-10.8); PLT - PLATELET COUNT 213 10^3/uL (130-450); RED CELL DISTRIBUTION WIDTH 13.2 % (12.0-15.0)
[2025-02-27 06:11] LABS: BUN - BLOOD UREA NITROGEN 3.0 mg/dL (6-20); CARBON DIOXIDE - CO2 23.0 mmol/L (21-32); CREATININE 0.5 mg/dL (0.6-1.3); GFR - MDRD 121.0 (>89); PHOSPHORUS 3.4 mg/dL (2.5-5.0)
[2025-02-27 06:22] LABS: BAND NEUTROPHILS % (MANUAL) 0 %; BASOPHILS # (MANUAL) 0.0 10^3/uL (0-0.1); EOSINOPHILS # (MANUAL) 0.0 10^3/uL (0-0.7)
[2025-02-27 06:34] LABS: INR 1.2 (0.8-1.2); PT - PROTHROMBIN TIME 12.8 secs (9.9-12.6)
[2025-02-27 06:51] LABS: ABNORMAL LYMPHS % (MANUAL) 2 %; LYMPHOCYTES # (MANUAL) 15.5 10^3/uL (1.5-3.5); LYMPHOCYTES % (MANUAL) 76 %; MONOCYTES # (MANUAL) 0.2 10^3/uL (0.0-1.0); NEUTROPHILS # (MANUAL) 4.2 10^3/uL (1.5-6.6)
[2025-02-27 06:53] LABS: PLATELET ESTIMATE, MANUAL NORMAL (130-450,000) (NORMAL); PLATELET MORPHOLOGY NORMAL APPEARANCE (NORMAL); RBC MORPHOLOGY (MULTIPLE) NORMAL APPEARANCE (NORMAL); WBC MORPHOLOGY (MULTIPLE) NORMAL APPEARANCE (NORMAL)
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
[2025-02-27] MEDS ORDERED: LIDOCAINE-PF 2% 10 ML AMP SUBQ ONE (07:23)
[2025-02-27] MEDS ORDERED: PROPOFOL 200 MG/20 ML VIAL IVP ONE (07:23)
[2025-02-27] MEDS ORDERED: SEVOFLURANE 250 ML LIQUID INH ONE (07:23)
[2025-02-27] MEDS ORDERED: ROCURONIUM 50 MG/5 ML VIAL ONE ×2 (07:23→08:48)
[2025-02-27] MEDS ORDERED: DEXAMETHASONE 4 MG/ML VIAL ONE ×2 (07:23→11:09)
[2025-02-27] MEDS ORDERED: ONDANSETRON 4 MG/2 ML VIAL ONE ×2 (07:23→11:09)
[2025-02-27] MEDS ORDERED: fentaNYL 100 MCG/2 ML VIAL ONE ×2 (07:25→12:59)
[2025-02-27] MEDS ORDERED: MIDAZOLAM 2 MG/2 ML VIAL ONE (07:26)
[2025-02-27] MEDS ORDERED: LIDOCAINE 1%-EPI 1:100000 20 ML MDV ONE (07:30)
[2025-02-27] MEDS ORDERED: BUPIVACAINE 0.25% PF 10 ML VIAL ONE (07:30)
[2025-02-27] MEDS ORDERED: ACETAMINOPHEN 1,000 MG/100 ML 1,000 MG/100 ML BAG IV ONE ×2 (07:49→13:02)
[2025-02-27] MEDS ORDERED: PHENYLEPHRINE HCL 0.5 MG/5 ML AMPULE ONE (08:13)
[2025-02-27] MEDS ORDERED: HYDROmorphone 1 MG/ML CARPUJECT ONE (09:00)
[2025-02-27] MEDS ORDERED: ePHEDrine 50 MG/ML VIAL IVP PRN (09:07)
[2025-02-27] MEDS ORDERED: METOCLOPRAMIDE 10 MG/2 ML VIAL IVP PRN (09:07)
[2025-02-27] MEDS ORDERED: ONDANSETRON 4 MG/2 ML VIAL IVP PRN (09:07)
[2025-02-27] MEDS ORDERED: ATROPINE ABBOJECT 1 MG/10 ML SYRINGE IVP PRN (09:07)
[2025-02-27] MEDS ORDERED: NALOXONE 0.4 MG/ML VIAL IVP PRN (09:07)
[2025-02-27] MEDS ORDERED: MORPHINE 2 MG/ML CARPUJECT IVP PRN (09:07)
[2025-02-27] MEDS ORDERED: METOPROLOL 5 MG/5 ML VIAL IVP ONE (10:06)
[2025-02-27] MEDS ORDERED: SUGAMMADEX 200 MG/2 ML VIAL IVP ONE (11:09)
[2025-02-27] MEDS ORDERED: ROPIVACAINE 0.5% PF 20 ML VIAL ONE (11:09)
--- NOTE | 2025-02-27 11:56 | OPERATIVE REPORT ---
Operative Report General Admit Date: 02/26/25 Procedure Data: Operation Date: 02/27/25 07:30 Proposed Procedures p Laparoscopic HAND-ASSISTED SIGMOID Colectomy, REVISION VAGINAL CUFF, TAKEDOWN COLOVAGINAL FISTULA(Not Applicable) - Soha Cannon DO Anesthesia Type General Case Staff Anesthesia Provider: Lavinia Soto Assisting Provider: Olu Shields Assisting Provider: Marta Trujillo Case Times Procedure Start: 02/27/25 08:39 Time out: 02/27/25 08:38 Other Other Information/Narrative: I came into the operating room with Dr. Cannon and Dr. Shields. They had identified the fistula area. I scrubbed in. I placed a speculum in the vagina and was able to see that the instrument Dr. Cannon was manipulating from above was visible thru a thin membrane into the vagina. The area of the vagina that had previously been tacked up was no looser. They felt that they would be able to oversew the vagina from above and that my assistance was not longer needed so I scrubbed out.
--- NOTE | 2025-02-27 11:58 | PROVIDER PROGRESS NOTE ---
Progress Note Progress Note Progress Note: I called patient's Jean-Pierre to update on status of surgery. Jacey is doing well and Dr. Cannon has isolated the fistula and has repaired it. They are getting ready to close the abdomen after surgery. He was thankful and will await Dr. Cannon's call after surgery is complete.
--- NOTE | 2025-02-27 12:48 | OPERATIVE REPORT ---
Operative Report General Admit Date: 02/27/25 Procedure Data: Operation Date: 02/27/25 07:30 Proposed Procedures p Laparoscopic HAND-ASSISTED SIGMOID Colectomy, REVISION VAGINAL CUFF, TAKEDOWN COLOVAGINAL FISTULA(Not Applicable) - Soha Cannon DO Anesthesia Type General Case Staff Anesthesia Provider: Lavinia Soto Assisting Provider: Olu Shields Assisting Provider: Marta Trujillo Case Times Procedure Start: 02/27/25 08:39 Time out: 02/27/25 08:38 Pre-Op Diagnosis: colovaginal fistula Post Op Diagnosis: Colovaginal fistula, perforated sigmoid diverticulum Procedure Note Intake, IV Amount (ml): 2,500 Estimated Blood Loss (ml): 100 Output, Urine Amount (ml): 250 Pathology: sigmoid colon (stitch ballard distal) with anastomotic donuts Indications: 74yoF with colovaginal fistula with 4 months of feculant drainage from vagina, no vaginal or colonic malignancy on vaginal exam under anesthesia or colonoscopy Findings: 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 Pelvic os fulgarated with bovie and oversewn with 2-0 Silk 31mm EEA stapled anastomosis with no leak Complications: none Other Other Information/Narrative: The patient was brought to the operating room with universal protocol observed throughout. General anesthesia with endotracheal tube was induced by the anesthesia service. They were positioned in low lithotomy position on the operating room table with both arms tucked. A De Jesus was placed. Ancef and Flagyl were administered. The abdomen was prepped and draped in standard sterile fashion. A timeout was performed with all members of the team being in agreement. Local anesthetic of 1% lidocaine with epinephrine mixed with Marcaine plain was injected into a lower midline infraumbilical incision, and the skin was incised sharply. The subcutaneous tissues and anterior fascia were divided with electrocautery, and the peritoneum was entered bluntly. A hand port wound protector was placed. A 5mm trocar was placed in the left mid-abdomen via direct visualization. The gel cap was attached to complete the hand port, and the abdomen was insufflated with CO2 gas to a pressure of 15 mmHg which the patient tolerated well. The laparoscope was inserted and the abdomen was inspected. Two additional 5mm trocars were placed under direct visualization: one in the left lower quadrant and one in the right lower quadrant. Attention was directed toward mobilizing the left colon and splenic flexure. Using intraperitoneal hand-assistance for retraction and laparoscopic scissors with cautery attachment, the white line of Toldt was opened along the left colic gutter, allowing medialization of the left colon and its mesentery. The splenic flexure was mobilized away from the spleen using the ligasure device, leaving Gerota's capsule and the kidney in situ and taking care to not disrupt the pancreatic tail parenchyma. The mobilized left colon was pulled into the pelvic, confirming enough length to make the colorectal anastomosis without tension. Attention was then directed toward the pelvis. The sigmoid colon was retracted medially, away from the left pelvic brim and side wall. There were dense chronic adhesions here to the side wall, that were taken down using a combination of hot scissors and finger fracture. Care was taken to ensure that the ureter was not within these adhesions. After fully releasing the sigmoid from the side wall, a 1cm perforation was observed in the left lateral sigmoid wall, corresponding with a fistula tract in the very low left lateral pelvis, which had exposed mucosa at the os. At this point Dr. Trujillo came into the operating room to complete a vaginal exam in coordination with the laparoscopic findings in the pelvis. The hand-port was removed, allowing direct access into the pelvis. Dr. Trujillo placed a speculum in the vagina, allowing visualization of the superior- most aspect of the vaginal cuff. A debakey was passed into the fistula tract from the pelvis, extending approximately 3-4 cm into the tract, at which point it could be seen in the superior aspect of the vagina by Dr. Trujillo. These findings confirmed the origin of the vaginal discharge as stool from a colovaginal fistula originating from a perforated diverticulum. The fistula was then oversewn by imbricating peritoneum over the os using a running 3-0 silk suture. At this point it was felt that the maximal benefit of laparoscopic dissection had been reached, and I decided to proceed with the remainder of the pelvic dissection in an open fashion. The gel HandPort and the trocars were removed and the abdomen desufflated. In an open fashion the remainder of the sigmoid colon was mobilized away from the lateral abdominal sidewall. The left ureter was not encountered during this dissection. Ultimately the colon was able to be mobilized down to the rectum at the peritoneal reflection. The sigmoid colon was divided proximal to the area of chronic disease with a SUELLEN blue load stapler 75 mm. The sigmoid mesentery was divided close to the colon with the LigaSure device. The rectum was transected just above the peritoneal reflection with a contour stapler. The specimen was then removed from the abdomen and a stitch was used to marii the distal aspect of the sigmoid colon and it was passed off the field for pathology. Attention was then directed toward creating the colorectal anastomosis. The distal end of the transected proximal sigmoid colon reached into the pelvis with no tension. The pursestring device was used to place a 3-0 Prolene suture at the distal end of the transected colon, and the staple line was cut off sharply. The anvil of a 31 mm EEA stapler was placed into the opened end of the sigmoid colon and secured with the Prolene suture. Dr. Shields then went to the perineal approach and advanced serial dilators up to size 31 mm transanally and up to the top of the stapled rectum. He then advanced the 31 mm EEA stapler with my direct visualization into the pelvis and deployed the spike. The anvil from the sigmoid colon was attached to the spike ensuring no twisting of the descending colon. The stapler was then closed by Dr. Shields. 2 silk stay sutures were placed across the anastomosis, and the stapler was fired. The stapler was removed and the proctoscope advanced transanally. There is no bleeding intraluminally from the anastomosis. The rectum was insufflated from t he proctoscope with the anastomosis submerged in normal saline in the pelvis, and the leak test was negative.The proctoscope was removed. The abdomen was then irrigated with warm normal saline. There was no active bleeding. Everyone then changed their gowns and gloves and proceeded with closure using a closing tray. The midline fascia was closed with 0 PDS looped suture x 2. The subcutaneous tissues were irrigated. The skin at all incisions was closed with 4-0 monocryl. Silver dressing was applied to the midline and dry gauze dressings were applied to the laparoscopic incisions. All sponge and needle counts were correct at the conclusion of the case. The patient tolerated the procedure well with no complications. The presence of a assistant manager of operations surgeon was necessary to provide exposure, tissue retraction, to assist in in suture control of vascular structures, and to facilitate fascial and skin closure during various portions of the operative procedure. The STRATEGIC PLANNING SPECIALIST performed bilateral Tap blocks. The patient was then transferred to the PACU in good condition. Soha Cannon DO, FACS General Surgeon, [facility]
[2025-02-27] MEDS: ceFAZolin (2G) 2 GM in SODIUM CHLORIDE 0.9% MINIBAG 100 ML IV ONE (12:58)
[2025-02-27] MEDS: fentaNYL 100 MCG/2 ML VIAL IVP PRN (13:00)
[2025-02-27] MEDS: ACETAMINOPHEN 1,000 MG/100 ML 1,000 MG/100 ML BAG IV ONE (13:03)
[2025-02-27] MEDS ORDERED: HYDROmorphone 0.5 MG/0.5 ML SYRINGE ONE ×2 (13:13→13:32)
[2025-02-27] MEDS: HYDROmorphone 0.5 MG/0.5 ML SYRINGE IVP PRN (13:13)
--- NOTE | 2025-02-27 13:26 | ANESTHESIA POST OP EVALUATION ---
Anesthesia Post Eval Post Anesthesia Eval Vitals: Last Vital Signs Temp 36.9 C 02/27/25 13:10 Pulse 103 H 02/27/25 13:10 Resp 17 02/27/25 13:10 BP 129/79 02/27/25 13:10 Pulse Ox 95 02/27/25 13:10 CV Function Including HR & BP: Stable Pain Control: Satisfactory Nausea & Vomiting: Negative Mental Status: Baseline Respiratory Status: Airway Patent Hydration Status: Satisfactory Anesthesia Complications: None
[2025-02-27] MEDS: LACTATED RINGERS 1,000 ML IV SCH ×2 (13:27→14:55)
[2025-02-27] MEDS: GABAPENTIN 400 MG CAPSULE PO ONE (13:35)
[2025-02-27] MEDS: CIPROFLOXACIN 400 MG/200 ML 400 MG/200 ML BAG IV SCH (14:53)
[2025-02-27] MEDS: GABAPENTIN 100 MG CAPSULE PO SCH (14:54)
--- NOTE | 2025-02-27 21:07 | PROVIDER PROGRESS NOTE ---
Subjective General Admit Date: 02/27/25 Procedure Date: 02/27/25 Post Op Days: 0 Procedure Performed: sigmoid colectomy, takedown colovaginal fistula Other Other Information/Narrative: Uncontrolled vaginal pain following bowel prep and colonoscopy yesterday, thus admitted for IV pain control and surgical intervention today. No sign of malignancy on colonoscopy. Uncomplicated lap hand-assisted sigmoid colectomy this AM, with takedown of colovaginal fistula. Origin of fistula found to be sigmoid diverticulum perforated into low left-anterior pelvic sidewall, with extraperitoneal fistula into vaginal cuff. Mild HTN but o/w HDN/AF since OR. Tolerated some clears for dinner, met DTV. Review of Systems Status of ROS: 10 or more systems reviewed and unremarkable except as noted in history and below Exam Exam Vital Signs: Vital Signs x48h Temp Pulse Pulse Resp BP BP Pulse Ox 02/27/25 20:00 36.7 C 99 16 158/96 H 95 02/27/25 15:48 36.7 C 87 16 137/78 H 98 02/27/25 15:47 36.5 C 87 137/89 H 98 02/27/25 15:25 36.4 C L 89 18 146/87 H 98 02/27/25 14:58 02/27/25 14:55 36.4 C L 87 18 110/73 95 02/27/25 14:40 36.4 C L 97 18 120/78 97 02/27/25 14:25 36.4 C L 92 18 122/79 97 02/27/25 14:10 36.2 C L 90 18 121/81 96 02/27/25 14:05 88 17 118/73 96 02/27/25 14:00 86 13 111/69 95 02/27/25 13:55 86 12 112/71 95 02/27/25 13:50 85 18 91/63 95 02/27/25 13:45 36.4 C L 84 12 103/65 94 02/27/25 13:40 95 12 106/69 92 02/27/25 13:35 96 12 121/80 97 02/27/25 13:30 97 12 123/75 97 02/27/25 13:25 36.4 C L 99 14 129/76 97 02/27/25 13:20 98 12 109/69 96 02/27/25 13:15 101 H 16 123/77 92 02/27/25 13:10 36.9 C 103 H 17 129/79 95 02/27/25 13:05 105 H 12 131/81 H 96 02/27/25 13:00 105 H 14 135/93 H 96 02/27/25 12:55 37.4 C 101 H 19 140/91 H 99 O2 Flow Rate 02/27/25 20:00 02/27/25 15:48 2 02/27/25 15:47 2 02/27/25 15:25 2 02/27/25 14:58 2 02/27/25 14:55 2 02/27/25 14:40 2 02/27/25 14:25 2 02/27/25 14:10 2 02/27/25 14:05 02/27/25 14:00 02/27/25 13:55 02/27/25 13:50 02/27/25 13:45 02/27/25 13:40 02/27/25 13:35 02/27/25 13:30 02/27/25 13:25 02/27/25 13:20 02/27/25 13:15 02/27/25 13:10 02/27/25 13:05 02/27/25 13:00 02/27/25 12:55 Constitutional normal general appearance, no apparent distress and average body habitus HENMT normocephalic Respiratory breath sounds equal bilaterally Cardiovascular normal heart rate noted and regular rhythm noted Gastrointestinal abdomen soft to palpation and nondistended silver dressing and steristrips in place. appropriate periincisional ttp. Extremities normal to inspection Neurology GCS 15 Psychiatry oriented x3 Skin skin color normal Impression/Plan Problem List (1) Colovaginal fistula: Plan 74yoF with colovaginal fistula symptomatic x 4mo, now s/p - 02/26/2025 colonoscopy (unable to pass beyond 40cm/sigmoid colon due to tethering of colon, presumably at site of fistula, no e/o malignancy) - 02/27/2025 laparoscopic hand-assisted sigmoid colectomy with takedown of col ovaginal fistula (origin found to be sigmoid diverticulum perforated into pelvic sidewall with extraperitoneal fistula tract to vagina). POD 0. ERAS pathway. MISA postop. Pain: Scheduled tylenol & gabapentin, PRN oxycodone & dilaudid. Will add toradol tomorrow if hgb stable. CV/Pulm: Resume home HTN meds tomorrow if continues to be stable overnight GI: Clears, ADAT tomorrow. Monitor for ROBF. : Anticipate some residual vaginal discharge as distal aspect of fistula heals; resume vaginal estrogen upon discharge Hira: Met DTV postop; BMP in AM Hem: No periop concerns for bleeding at this time; CBC in AM ID: [id number] Cipro/Flagyl given active stool contamination of extraperitoneal space/fistula/vagina PPX: Start lovenox tomorrow if hgb stable. Soha Cannon DO, FACS General Surgeon, [facility]
[2025-02-28 04:53] LABS: HCT - HEMATOCRIT 33.8 % (37.0-47.0); HGB - HEMOGLOBIN 10.3 g/dL (12.0-16.0); MEAN PLATELET VOLUME 9.4 fL (7.9-10.8); PLT - PLATELET COUNT 225 10^3/uL (130-450); RED CELL DISTRIBUTION WIDTH 13.6 % (12.0-15.0)
[2025-02-28 04:57] LABS: SLIDE REVIEW? Indicated
[2025-02-28 04:58] LABS: BAND NEUTROPHILS % (MANUAL) 0 %; BASOPHILS # (MANUAL) 0.0 10^3/uL (0-0.1); EOSINOPHILS # (MANUAL) 0.0 10^3/uL (0-0.7)
[2025-02-28 05:06] LABS: BUN - BLOOD UREA NITROGEN 5.0 mg/dL (6-20); CARBON DIOXIDE - CO2 20.0 mmol/L (21-32); CREATININE 0.5 mg/dL (0.6-1.3); GFR - MDRD 121.0 (>89); PHOSPHORUS 2.9 mg/dL (2.5-5.0)
[2025-02-28 05:37] LABS: ABNORMAL LYMPHS % (MANUAL) 4 %; LYMPHOCYTES # (MANUAL) 15.3 10^3/uL (1.5-3.5); LYMPHOCYTES % (MANUAL) 3 %; MONOCYTES # (MANUAL) 1.9 10^3/uL (0.0-1.0); NEUTROPHILS # (MANUAL) 9.7 10^3/uL (1.5-6.6); REACTIVE LYMPHS % (MANUAL) 50 %
[2025-02-28 05:38] LABS: PLATELET ESTIMATE, MANUAL NORMAL (130-450,000) (NORMAL); PLATELET MORPHOLOGY NORMAL APPEARANCE (NORMAL); RBC MORPHOLOGY (MULTIPLE) NORMAL APPEARANCE (NORMAL); WBC MORPHOLOGY (MULTIPLE) 2+ SMUDGE CELLS (NORMAL)
[2025-02-28 05:40] LABS: SLIDE SENT FOR PATH REVIEW? Indicated
[2025-02-28] MEDS: MAGNESIUM OXIDE 400 MG TABLET PO ONE (10:17)
--- NOTE | 2025-02-28 11:21 | PROVIDER PROGRESS NOTE ---
Subjective General Admit Date: 02/27/25 Procedure Date: 02/27/25 Post Op Days: 1 Procedure Performed: sigmoid colectomy, takedown colovaginal fistula Other Other Information/Narrative: POD1. MISA. Tolerated clears yesterday and passed flatus x1, but distended with poor pain control this AM. Ambulated in hallway. Wound Assessment Wound/Incisions: positive Dressing dry and intact Review of Systems Status of ROS: 10 or more systems reviewed and unremarkable except as noted in history and below Exam Exam Vital Signs: Vital Signs x48h Temp Pulse Resp BP Pulse Ox 02/28/25 09:00 36.5 C 112 H 18 147/91 H 96 02/28/25 08:00 36.5 C 112 H 18 147/91 H 96 02/28/25 05:19 36.7 C 104 H 16 148/89 H 96 Constitutional normal general appearance, no apparent distress and average body habitus HENMT normocephalic Respiratory breath sounds equal bilaterally Cardiovascular normal heart rate noted and regular rhythm noted Gastrointestinal distended silver dressing and steristrips in place. appropriate periincisional ttp. tympanic. Extremities normal to inspection Neurology GCS 15 Psychiatry oriented x3 Skin skin color normal Impression/Plan Problem List (1) Colovaginal fistula: Plan 74yoF with colovaginal fistula symptomatic x 4mo, now s/p - 02/26/2025 colonoscopy (unable to pass beyond 40cm/sigmoid colon due to tethering of colon, presumably at site of fistula, no e/o malignancy) - 02/27/2025 laparoscopic hand-assisted sigmoid colectomy with takedown of colovaginal fistula (origin found to be sigmoid diverticulum perforated into pelvic sidewall with extraperitoneal fistula tract to vagina). POD 1. ERAS pathway. MISA postop. Passed flatus once but is distended/tympanic. Needs better pain control (incisional now, not vaginal pain) Pain: Scheduled tylenol & gabapentin, add scheduled toradol, PRN oxycodone & dilaudid. CV/Pulm: Holding home HTN, will resume prn GI: Limited Clears, Monitor for ROBF. Place abdominal binder to help with incisional pain. : Anticipate some residual vaginal discharge as distal aspect of fistula heals; resume vaginal estrogen upon discharge Hira: Met DTV postop; BMP daily, mIVF @ 100 until better bowel function/PO intake Hem: No periop concerns for bleeding at this time; CBC daily ID: [id number] Cipro/Flagyl given active stool contamination of extraperitoneal space/fistula/vagina PPX: Hold lovenox today since adding toradol for pain, start tomorrow if hgb still stable Soha Cannon DO, FACS General Surgeon, [facility]
[2025-02-28] MEDS: KETOROLAC 15 MG/ML VIAL IVP SCH (11:34)
[2025-02-28] MEDS: D5.45NS W/20 MEQ KCL 1,000 ML IV STA (11:35)
[2025-02-28] MEDS ORDERED: LIDOCAINE JELLY 2% 6 ML JEL.PF.APP ONE (12:15)
--- NOTE | 2025-02-28 13:26 | XRAY Report ---
EXAMINATION: XR Chest for Line Placement, AP INDICATION: NG tube placement COMPARISON: None FINDINGS: TUBES/LINES: * Subdiaphragmatic enteric tube with tip overlying the inferior gastric body. LUNGS: No consolidations or edema. PLEURA: No pleural effusions. No pneumothorax. HEART/MEDIASTINUM: Unremarkable. MUSCULOSKELETAL: No acute findings. UPPER ABDOMEN: No subdiaphragmatic free air. Prominent, air-filled, stacked loops of small bowel in the mid abdomen. IMPRESSION: 1. Subdiaphragmatic enteric tube with tip overlying the distal gastric body. 2. Prominent loops of small bowel in the mid abdomen, concerning for developing ileus versus small bowel obstruction. Reviewed by: Giorgi Molina MD on 02/28/2025 1:22 PM PDT Approved by: Giorgi Molina MD on 02/28/2025 1:22 PM PDT Station ID: [id number]
--- NOTE | 2025-02-28 13:41 | PROVIDER PROGRESS NOTE ---
Subjective General Admit Date: 02/27/25 Procedure Date: 02/27/25 Post Op Days: 1 Procedure Performed: Lap sigmoid colectomy with takedown splenic flex and TD colovag fistula Other Other Information/Narrative: Patient complaining of abdominal discomfort and distention stating that she looks and feels . She is already ambulated once today in halls. Wound Assessment Wound/Incisions: positive Dressing dry and intact Review of Systems I did not perform an extensive review of systems today. The patient states that her abdomen is distended and she feels significant discomfort. She feels as though she is although she has never been . There is some difficulty controlling her postoperative pain. Exam Exam Vital Signs: Vital Signs x48h Temp Pulse Resp BP Pulse Ox 02/28/25 09:00 36.5 C 112 H 18 147/91 H 96 02/28/25 08:00 36.5 C 112 H 18 147/91 H 96 General: 74-year old female, appears stated age, well developed, well nourished, evaluated in room 2206 at [facility] MedSurg unit, her was present for the entire discussion and exam HEENT: Normocephalic, atraumatic, extraocular movement intact, mucous membranes pink and moist, sclera anicteric and not injected Neck: Did not examine Cardiac: Slightly tachycardic into the low 100s with a regular rate and rhythm without rub, gallop, or murmur Chest: Clear to auscultation bilaterally anterolaterally Abdomen: Soft, incisional tenderness, decreased bowel sounds, I did not press hard enough to evaluate hepatomegaly or splenomegaly (although her spleen was rather large visually during her operation yesterday), all the wounds were dressed without any drainage Genitourinary: Deferred Rectal: Deferred Extremities: No gross neurovascular problem, no clubbing, cyanosis or edema Gait: I did not have the patient get out of bed Psychiatric: Alert and oriented to person place and time, asks and answers questions appropriately, mood and affect appropriate ABX Reporting Has patient been on IV antibiotics over the past 48 hours?: Yes Impression/Plan Problem List (1) Colovaginal fistula: (2) S/P laparoscopic-assisted sigmoidectomy: Plan Postoperative day 1 status post laparoscopic assisted sigmoidectomy with colocolostomy and takedown of splenic flexure, closure of colovaginal fistula Patient is on the ERAS protocol. 1) FEN Will continue to support with IV fluids since oral intake seems to be increasing her abdominal distention. I have ordered a nasogastric tube to be placed as it appears that her bowel function is not returning as quickly as we would like. 2) Activity Patient doing well and ambulating in the halls. is aware and is supportive. 3) GI Place nasogastric tube to help with abdominal distention and patient discomfort. Explained that patient can take lollipops or even gum while she is walking to help induce bowel function return. Lollipops can also help if her mouth is somewhat dry. Once nasogastric tube is in place ice chips are okay. I do not want anything to increase her abdominal distention at this point in time. 4) ID White blood cell count did bump to 26 today and although this is quite high it may in fact be reactive. I will follow this tomorrow but currently there is no indication of infection or sepsis. CPT 65714
[2025-02-28] MEDS ORDERED: MAGNESIUM SULFATE 1 GM/2 ML VIAL IVP STA (13:47)
[2025-02-28] MEDS: LIDOCAINE JELLY 2% 6 ML JEL.PF.APP TOP ONE (16:55)
[2025-02-28] MEDS: MAGNESIUM SULFATE 1 GM in SODIUM CHLORIDE 0.9% 50 ML IV ONE (17:19)
[2025-03-01 05:05] LABS: HCT - HEMATOCRIT 33.7 % (37.0-47.0); HGB - HEMOGLOBIN 10.7 g/dL (12.0-16.0); MEAN PLATELET VOLUME 8.9 fL (7.9-10.8); PLT - PLATELET COUNT 203 10^3/uL (130-450); RED CELL DISTRIBUTION WIDTH 13.8 % (12.0-15.0)
[2025-03-01 05:10] LABS: ABNORMAL LYMPHS % (MANUAL) 0 %; BAND NEUTROPHILS % (MANUAL) 0 %; BASOPHILS # (MANUAL) 0.0 10^3/uL (0-0.1)
[2025-03-01 05:18] LABS: BUN - BLOOD UREA NITROGEN 6.0 mg/dL (6-20); CARBON DIOXIDE - CO2 22.0 mmol/L (21-32); CREATININE 0.4 mg/dL (0.6-1.3); GFR - MDRD 156.0 (>89); PHOSPHORUS 2.3 mg/dL (2.5-5.0)
[2025-03-01 05:32] LABS: EOSINOPHILS # (MANUAL) 0.5 10^3/uL (0-0.7); LYMPHOCYTES # (MANUAL) 13.3 10^3/uL (1.5-3.5); LYMPHOCYTES % (MANUAL) 30 %; MONOCYTES # (MANUAL) 1.0 10^3/uL (0.0-1.0); NEUTROPHILS # (MANUAL) 9.8 10^3/uL (1.5-6.6); PLATELET ESTIMATE, MANUAL NORMAL (130-450,000) (NORMAL); PLATELET MORPHOLOGY NORMAL APPEARANCE (NORMAL); RBC MORPHOLOGY (MULTIPLE) NORMAL APPEARANCE (NORMAL); REACTIVE LYMPHS % (MANUAL) 24 %; WBC MORPHOLOGY (MULTIPLE) 1+ SMUDGE CELLS (NORMAL)
[2025-03-01] MEDS: SODIUM CHLORIDE FLUSH 0.9% 10 ML SYRINGE IVP PRN (05:39)
[2025-03-01] MEDS: METOCLOPRAMIDE 10 MG/2 ML VIAL IVP PRN (05:51)
--- NOTE | 2025-03-01 09:15 | PROVIDER PROGRESS NOTE ---
Subjective General Admit Date: 02/27/25 Procedure Date: 02/27/25 Post Op Days: 2 Procedure Performed: Lap sigmoid colectomy with takedown splenic flex and TD colovag fistula Other Other Information/Narrative: Small volume emesis yesterday, NGT placed (in good position on XR) with <100cc out since then. Though she feels much better with the NGT in placed. She is passing rare flatus. Pain meds are working for her - she is requiring dilaudid. Wound Assessment Wound/Incisions: positive Dressing dry and intact Review of Systems Status of ROS: 10 or more systems reviewed and unremarkable except as noted in history and below Exam Exam Vital Signs: Vital Signs x48h Temp Pulse Pulse Resp BP BP Pulse Ox 03/01/25 07:00 80 132/84 H 03/01/25 06:52 80 132/84 H 03/01/25 06:47 81 128/83 03/01/25 06:42 82 135/82 H 03/01/25 06:38 83 16 139/91 H 90 L 03/01/25 06:37 100 162/103 H 03/01/25 06:25 160/101 H 03/01/25 05:30 36.7 C 107 H 20 97 Constitutional normal general appearance, no apparent distress and average body habitus HENMT normocephalic Respiratory breath sounds equal bilaterally Cardiovascular normal heart rate noted and regular rhythm noted Gastrointestinal abdomen soft to palpation less distended/softer, silver dressing and steristrips in place. appropriate periincisional ttp. 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 POD 2. ERAS pathway -> ileus with NGT. Passing rare flatus so hopefully ileus will not be prolonged. Pain is improved. Pain: Scheduled tyleno and toradol, anabel gabapentin, PRN oxycodone & dilaudid. CV/Pulm: Holding home HTN, will resume prn GI: NPO/NGT, Monitor for ROBF. Abdominal binder to help with incisional pain. : Anticipate some residual vaginal discharge as distal aspect of fistula heals; resume vaginal estrogen upon discharge Hira: BMP daily, mIVF @ 100 until better bowel function/PO intake Hem: No periop concerns for bleeding at this time; CBC daily ID: [id number] Cipro/Flagyl given active stool contamination of extraperitoneal space/fistula/vagina PPX: Start lovenox today Soha Cannon DO, FACS [facility] Sur[facility], [facility]
[2025-03-01] MEDS: ENOXAPARIN 40 MG/0.4 ML SYRINGE SUBQ SCH (10:24)
[2025-03-01] MEDS: MAGNESIUM SULFATE 2 GRAM 2 GM/50 ML BAG IV ONE (11:37)
[2025-03-01] MEDS: D5.45NS W/20 MEQ KCL 1,000 ML IV SCH (12:50)
[2025-03-01] MEDS: PHENOL THROAT SPRAY 177 ML MM PRN (15:19)
[2025-03-02] MEDS: MAGNESIUM SULFATE 2 GRAM 2 GM/50 ML BAG IV ONE (09:08)
[2025-03-02] MEDS: DEXTROSE-SOD CHLOR W/20 MEQ K 1,000 ML IV SCH (09:09)
[2025-03-02] MEDS: METOPROLOL 5 MG/5 ML VIAL IVP SCH (10:13)
--- NOTE | 2025-03-02 14:15 | PROVIDER PROGRESS NOTE ---
Subjective General Admit Date: 02/27/25 Procedure Date: 02/27/25 Post Op Days: 4 Procedure Performed: Lap sigmoid colectomy with takedown splenic flex and TD colovag fistula Other Other Information/Narrative: Hypertensive overnight, given hydralazine now with rebound tachycardia. Complaining of palpitations. NGT with minimal output, has been clamped for some PO meds. Passing some gas. Has developed blisters around the steristrips, has not gotten abdominal binder yet. Wound Assessment Wound/Incisions: positive Dressing dry and intact Review of Systems Status of ROS: 10 or more systems reviewed and unremarkable except as noted in history and below Exam Exam Vital Signs: Vital Signs x48h Temp Pulse Pulse Resp BP BP Pulse Ox 03/03/25 03:05 98 148/91 H 03/03/25 03:05 98 148/91 H 03/02/25 23:42 36.4 C L 103 H 20 158/101 H 95 Constitutional normal general appearance, no apparent distress and average body habitus HENMT normocephalic Respiratory breath sounds equal bilaterally Cardiovascular normal heart rate noted and regular rhythm noted Gastrointestinal abdomen soft to palpation and distended less distended/softer, silver dressing and steristrips removed 2/2 skin blistering, replaced with ABD pad + binder. appropriate periincisional ttp. 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 POD 3. ERAS pathway -> ileus with NGT. Passing more flatus so hopefully ileus will not be prolonged. Pain is improved. Pain: Scheduled tyleno and toradol, anabel gabapentin, PRN oxycodone & dilaudid. CV/Pulm: Holding home HTN. Stop prn hydralazine, start anabel 5mg metoprolol q6h GI: NPO/NGT, Monitor for ROBF. Abdominal binder to help with incisional pain. : Anticipate some residual vaginal discharge as distal aspect of fistula heals; resume vaginal estrogen upon discharge Hira: BMP daily, mIVF until better bowel function/PO intake Hem: No periop concerns for bleeding at this time; CBC daily ID: 4d Cipro/Flagyl given active stool contamination of extraperitoneal space/fistula/vagina PPX: continue lovenox Soha Cannon DO, FACS General Surgeon, [facility]
[2025-03-02] MEDS: MAGNESIUM SULFATE 2 GM in SODIUM CHLORIDE 0.9% 50 ML IV ONE (17:45)
--- NOTE | 2025-03-03 07:29 | PROVIDER PROGRESS NOTE ---
Subjective General Admit Date: 02/27/25 Procedure Date: 02/27/25 Post Op Days: 4 Procedure Performed: Lap sigmoid colectomy with takedown splenic flex and TD colovag fistula Other Other Information/Narrative: NGT with 400cc out. Passing gas. Feeling hungry. Requiring oxycodone (x2) and dilaudid (x4) for pain control. Did walk x2 yesterday. HTN improved and HR down to ~100 from 120-130 yesterday. Sense of palpitations has resolved. Wound Assessment Wound/Incisions: positive No drainage Review of Systems Status of ROS: 10 or more systems reviewed and unremarkable except as noted in history and below Exam Exam Vital Signs: Vital Signs x48h Pulse Pulse BP BP 03/03/25 03:05 98 148/91 H 03/03/25 03:05 98 148/91 H Constitutional normal general appearance, no apparent distress and average body habitus HENMT normocephalic Respiratory breath sounds equal bilaterally Cardiovascular normal heart rate noted and regular rhythm noted Gastrointestinal abdomen soft to palpation and distended less distended/softer, incisions CDI, skin blistering at left lateral lap incisions, ABD pad + binder. appropriate periincisional ttp. 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 POD 4. ERAS pathway -> ileus resolving. Pain is improving. Pain: Scheduled tyleno and toradol, anabel gabapentin, PRN oxycodone & dilaudid. CV/Pulm: Holding home HTN. anabel 5mg metoprolol q6h. Once tolerating PO will resume home meds. GI: NGT out, trial clears. Abdominal binder to help with incisional pain. : Anticipate some residual vaginal discharge as distal aspect of fistula heals; resume vaginal estrogen upon discharge Hira: BMP daily, mIVF until better bowel function/PO intake Hem: No periop concerns for bleeding at this time; CBC daily ID: 4d Cipro/Flagyl given active stool contamination of extraperitoneal space/fistula/vagina PPX: continue lovenox Soha Cannon DO, FACS General Surgeon, [facility]
[2025-03-03 08:11] LABS: HCT - HEMATOCRIT 35.6 % (37.0-47.0); HGB - HEMOGLOBIN 11.0 g/dL (12.0-16.0); MEAN PLATELET VOLUME 8.9 fL (7.9-10.8); PLT - PLATELET COUNT 241 10^3/uL (130-450); RED CELL DISTRIBUTION WIDTH 13.8 % (12.0-15.0)
[2025-03-03 08:13] LABS: ABNORMAL LYMPHS % (MANUAL) 0 %; BAND NEUTROPHILS % (MANUAL) 0 %; BASOPHILS # (MANUAL) 0.0 10^3/uL (0-0.1)
[2025-03-03 08:26] LABS: BUN - BLOOD UREA NITROGEN 3.0 mg/dL (6-20); CARBON DIOXIDE - CO2 23.0 mmol/L (21-32); CREATININE 0.4 mg/dL (0.6-1.3); GFR - MDRD 156.0 (>89); PHOSPHORUS 2.4 mg/dL (2.5-5.0)
[2025-03-03 08:37] LABS: EOSINOPHILS # (MANUAL) 0.2 10^3/uL (0-0.7); LYMPHOCYTES # (MANUAL) 10.7 10^3/uL (1.5-3.5); LYMPHOCYTES % (MANUAL) 62 %; MONOCYTES # (MANUAL) 0.5 10^3/uL (0.0-1.0); NEUTROPHILS # (MANUAL) 4.6 10^3/uL (1.5-6.6); PLATELET ESTIMATE, MANUAL NORMAL (130-450,000) (NORMAL); PLATELET MORPHOLOGY NORMAL APPEARANCE (NORMAL); RBC MORPHOLOGY (MULTIPLE) NORMAL APPEARANCE (NORMAL); REACTIVE LYMPHS % (MANUAL) 5 %; WBC MORPHOLOGY (MULTIPLE) 1+ SMUDGE CELLS (NORMAL)
[2025-03-03 09:43] LABS: PATHOLOGIST SLIDE COMMENTS SEE SEPARATE REPORT
[2025-03-03] MEDS: ONDANSETRON 4 MG/2 ML VIAL IVP PRN (14:45)
[2025-03-03] MEDS ORDERED: METOPROLOL 5 MG/5 ML VIAL IVP PRN (19:18)
[2025-03-04 07:27] LABS: HCT - HEMATOCRIT 35.0 % (37.0-47.0); HGB - HEMOGLOBIN 10.5 g/dL (12.0-16.0); MEAN PLATELET VOLUME 9.1 fL (7.9-10.8); PLT - PLATELET COUNT 264 10^3/uL (130-450); RED CELL DISTRIBUTION WIDTH 13.9 % (12.0-15.0)
[2025-03-04 07:31] LABS: BAND NEUTROPHILS % (MANUAL) 0 %; BASOPHILS # (MANUAL) 0.0 10^3/uL (0-0.1)
[2025-03-04 07:38] LABS: BUN - BLOOD UREA NITROGEN 4.0 mg/dL (6-20); CARBON DIOXIDE - CO2 26.0 mmol/L (21-32); CREATININE 0.4 mg/dL (0.6-1.3); GFR - MDRD 156.0 (>89); PHOSPHORUS 3.2 mg/dL (2.5-5.0)
[2025-03-04 08:37] LABS: ABNORMAL LYMPHS % (MANUAL) 5 %; EOSINOPHILS # (MANUAL) 0.2 10^3/uL (0-0.7); LYMPHOCYTES # (MANUAL) 14.1 10^3/uL (1.5-3.5); LYMPHOCYTES % (MANUAL) 71 %; MONOCYTES # (MANUAL) 0.9 10^3/uL (0.0-1.0); NEUTROPHILS # (MANUAL) 3.3 10^3/uL (1.5-6.6); PLATELET ESTIMATE, MANUAL NORMAL (130-450,000) (NORMAL); PLATELET MORPHOLOGY NORMAL APPEARANCE (NORMAL); RBC MORPHOLOGY (MULTIPLE) NORMAL APPEARANCE (NORMAL)
[2025-03-04] MEDS: LOSARTAN 50 MG TABLET PO SCH (08:47)
[2025-03-04] MEDS: PROPRANOLOL 40 MG TABLET PO SCH (08:47)
--- NOTE | 2025-03-04 09:01 | PROVIDER PROGRESS NOTE ---
Subjective General Admit Date: 02/27/25 Procedure Date: 02/27/25 Post Op Days: 5 Procedure Performed: Lap sigmoid colectomy with takedown splenic flex and TD colovag fistula Other Other Information/Narrative: Tolerated clears yesterday with continued copious flatus. Hungry for solid food this AM. Walking multiple laps in the hallway, using FWW and has access to one at home that she can use for the acute postop period. Wound Assessment Wound/Incisions: positive Healing well and No drainage Review of Systems Status of ROS: 10 or more systems reviewed and unremarkable except as noted in history and below Exam Exam Vital Signs: Vital Signs x48h Temp Pulse Resp BP Pulse Ox 03/04/25 07:46 36.7 C 105 H 16 189/118 H 95 Constitutional normal general appearance, no apparent distress and average body habitus HENMT normocephalic Respiratory breath sounds equal bilaterally Cardiovascular normal heart rate noted and regular rhythm noted stable HR ~ 100 Gastrointestinal abdomen soft to palpation and nondistended incisions CDI, yellow ecchymosis around midline incision, stable/healing skin blistering at left lateral lap incisions, open to air. minimal periincisional ttp. 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 POD 5. ERAS pathway -> ileus resolved. Pain controlled. Pain: Scheduled PO tylenol and motrin, anabel gabapentin, PRN oxycodone, dc iv dilaudid. CV/Pulm: On home meds. GI: Regular diet. : Anticipate some residual vaginal discharge as distal aspect of fistula heals; resume vaginal estrogen upon discharge Hira: DC mIVF Hem: No periop concerns for bleeding ID: completed 4d Cipro/Flagyl given active stool contamination of extraperitoneal space/fistula/vagina, has not had any vaginal discharge PPX: continue lovenox Dispo: DC home this evening vs tomorrow, pending tolerance of regular diet and PO pain control Soha Cannon DO, FACS General Surgeon, [facility]
[2025-03-04] MEDS: ACETAMINOPHEN 500 MG TABLET PO SCH ×2 (10:05→10:08)
[2025-03-04] MEDS: IBUPROFEN 800 MG TABLET PO SCH (13:29)
--- NOTE | 2025-03-04 18:23 | Discharge Summary ---
Discharge Summary Admit Date: 02/27/25 Discharge Date: 03/04/25 Discharging Provider: Leticia De Los Santos PA-C Primary Care Provider: Derik Gordon DO Code Status: Attempt Resuscitation DIAGNOSES Discharge Diagnoses with Status of Each Condition: Status post laparoscopic hand-assisted sigmoid colectomy, revision of vaginal cuff, takedown of colovaginal fistula. HPI History of Present Illness: 74-year-old female referred for concerns for intestinal vaginal fistula. She has a remote surgical history of an open appendectomy in her 20s, and in her 30s of an exploratory laparotomy for primary infertility in 1984 followed by an abdominal hysterectomy and bilateral oophorectomy in 1986. Subsequently she had 3 laparoscopies for adhesiolysis due to pelvic pain; she does report improvement of pelvic pain from those procedures. Since her 30s she has had no further abdominal surgeries. 4 months ago in October 2024 the patient developed vaginal pain and foul-smelling brown vaginal discharge (blood tinged at the onset, but not recurrently bloody). She wears a sherry-pad that she changes 1-2 times a day after it is saturated with brown drainage, which has continued daily over 4 months. She is experiencing ongoing vaginal pain that feels like pulling or tugging within her pelvis, similar to the adhesive pain she had back in her 30s. At times she can sense a building fullness around her vagina that then releases with a gush of brown fluid drainage. The patient showed me a picture of her vaginal discharge and it does indeed look like light brown stool. She has been followed over the last few months by [facility] for this issue. She has undergone 2 speculum exams with fluid culture and Pap smear. Her Pap smear cytology has been negative for dysplasia or HPV. On both 12/24/2024 and 01/13/2025 vaginal fluid culture grew E. coli. Her urine culture did not show UTI. She has not had fevers, nausea, vomiting or diarrhea; however she has felt fatigued. Dr. Trujillo took the patient to the operating room on 02/09/2025 for a vaginal exam under anesthesia. She was able to identify a opening in the vaginal cuff through which an angiocatheter was passed and contrast dye was injected under fluoroscopy. Vaginal biopsies from immediately around the location that the angiocatheter was passed through the vaginal cuff returned as benign squamous epithelium, negative for any dysplasia or malignancy. The fluoroscopy demonstrated that the contrast was filling the peritoneal cavity. A CT pelvis was obtained immediately after the operating room which confirmed these findings, demonstrating contrast fluid in the dependent portion of the pelvis; there was no contrast within the lumen of small or large bowel. There is also no evidence of any bowel wall thickening in the small bowel or large bowel. She is taking narcotic pain pills for this issue; she also has chronic pain associated with a [employer] accident 8 years ago. She has been constipated with a bowel movement every 2 to 3 days. She uses senna to have a bowel movement. She denies blood or mucus within her bowel movements. She denies accidental weight loss. She has no family history of colorectal cancer. She has never had a colonoscopy out of fear that it could cause further adhesions or abdominal pain. CONSULTS | PROCEDURES Procedures: Laparoscopic hand-assisted sigmoid colectomy, revision of vaginal cuff, takedown of colovaginal fistula on 02/27/2025. By Dr. Cannon [facility] Hospital Course: This patient was admitted to the surgical service after uncontrolled vaginal pain following bowel prep and colonoscopy on the day before the above listed procedure. She underwent uncomplicated lap hand-assisted sigmoid colectomy with takedown of her colovaginal fistula. Origin of the fistula was found to be sigmoid diverticulum which was perforated into the low left anterior pelvic sidewall with extraperitoneal fistula into the vaginal cuff. Postoperatively multimodal pain control was instituted. She was given 4 days of Cipro and Flagyl after surgical source control of the fistula. DVT prophylaxis with Lovenox was started on postop day 2. Return of bowel function was somewhat delayed and she did require placement of NG tube due to discomfort on postoperative day 1. She was otherwise doing well with implementation of ERAS protocol. Passing occasional flatus by postoperative day 2. Some tachycardia, was given scheduled metoprolol prior to return of bowel function. NG tube was out and she was given a trial of clear liquids on postoperative day 4. Her home antihypertensives were started on postoperative day 4, losartan 50 mg daily and propranolol 40 mg daily By postoperative day 5 the patient was tolerating a diet and was able to discharge home in the care of her on postoperative day 5, In the evening ALLERGIES Allergies Allergy/AdvReac Type Severity Reaction Status Date / Time codeine Allergy Mild Nausea Verified 02/22/25 12:44 MEDICATIONS Ambulatory Orders Medication Instructions Recorded Confirmed valacyclovir 500 mg tablet 500 mg PO DAILY 10/06/17 diazepam 10 mg tablet (Valium) 5 mg PO TID PRN anxiety 12/22/24 02/26/25 losartan 50 mg tablet 50 mg PO QDAY 12/22/2402/22 meloxicam 15 mg tablet 15 mg PO QDAY PRN as needed 12/22/24 02/22/25 Held on 03/04/25. Instructions: Resume on 03/16/25. Do not take while taking Motrin for postop pain pravastatin 10 mg tablet 10 mg PO QDAY 12/22/2402/26 propranolol 10 mg tablet 40 mg PO .QD 12/22/24 estradiol 0.01% (0.1 mg/gram) See Rx Instructions .Rou te 12/25/24 02/22/25 vaginal cream (Estrace) .COMPLEX #42.5 grams lidocaine HCl 2 % mucosal jelly in 1 applic topical .d aily PRN 12/25/24 02/22/25 applicator vaginal pain #125 mL temazepam 15 mg capsule 15 mg PO QPM 02/26/25 acetaminophen 500 mg tablet 1,000 mg (2 x 500 mg) PO Q 8H #120 03/04/25 (Tylenol Extra Strength) tabs gabapentin 100 mg capsule 100 mg PO TID #30 caps 03/04 ibuprofen 800 mg tablet 800 mg PO TID #60 tabs 03/04 oxycodone 5 mg tablet 5 mg PO Q4HR PRN Moderate Pa in 03/04/25 (Level 4-6) #20 tabs PHYSICAL EXAM AT DISCHARGE Vital Signs: Vital Signs x48h Temp Pulse Resp BP Pulse Ox 03/04/25 16:35 36.7 C 92 16 170/109 H 95 LABS 03/04/25 06:58 03/04/25 06:58 FOLLOW UP Follow Up: PCP as scheduled. Dr Cannon, 03/15 at 1330 TIME SPENT Time Spent in Discharge (Minutes): 25 Discharge Plan Discharge Patient Disposition: Home, Self Care Prescriptions: New oxycodone 5 mg Tablet 5 mg PO Q4HR PRN (Reason: Moderate Pain (Level 4-6)) Qty: 20 0RF ibuprofen 800 mg Tablet 800 mg PO TID Qty: 60 0RF gabapentin 100 mg Capsule 100 mg PO TID Qty: 30 0RF acetaminophen [Tylenol Extra Strength] 500 mg Tablet 1,000 mg PO Q8H Qty: 120 0RF Continued estradiol [Estrace] 0.01 % (0.1 mg/gram) cream See Rx Instructions .Route .COMPLEX Qty: 42.5 4RF Rx Instructions: 0.5 to 1 gm apply small amount with finger to outside then place into vagina every day. Use lidocaine gel on applicator. and can place lidocaine before applying. lidocaine HCl 2 % jelly in applicator 1 applic topical .daily PRN (Reason: vaginal pain) Qty: 125 2RF valacyclovir 500 MG tablet 500 mg PO DAILY temazepam 15 mg capsule 15 mg PO QPM losartan 50 mg tablet 50 mg PO QDAY propranolol 10 mg tablet 40 mg PO .QD pravastatin 10 mg tablet 10 mg PO QDAY diazepam [Valium] 10 mg tablet 5 mg PO TID PRN (Reason: anxiety) Held meloxicam 15 mg tablet 15 mg PO QDAY PRN (Reason: as needed) Hold Instructions: Resume on 03/16/25. Do not take while taking Motrin for postop pain Discontinued acetaminophen 325 mg capsule 325 - 650 mg PO Q4H PRN (Reason: pain) Qty: 60 1RF oxycodone-acetaminophen [Percocet] 1 EACH tablet 1 - 2 tab PO Q4H PRN (Reason: Pain) Qty: 15 0RF sodium,potassium,mag sulfates [Suprep Bowel Prep Kit] 17.5-3.13-1.6 gram recon soln See Rx Instructions PO .COMPLEX Qty: 354 0RF Rx Instructions: Please follow the instructions given by the surgical clinic Activity Restrictions: Additional Comments Diet: Regular Health Concerns: DIET * You may resume your normal diet if there is no nausea or vomiting. * If nausea or vomiting occurs, don't eat or drink anything for one hour. Then start drinking small amounts of clear liquids. Later, add crackers, gradually building up to your usual diet. ACTIVITY INSTRUCTIONS * No lifting more than 20 pounds for 4 weeks * May shower normally DRESSING CARE * Remove the clear tape and gauze after 48 hours * Leave the Steristrips (white tape) in place - they will fall off on their own in 1-2 weeks * Using supportive garments to reduce surgical site motion will reduce pain DISCHARGE INSTRUCTIONS * Please call the General Surgery Clinic / Dr. Cannon's office ([phone]) for any questions or signs of bleeding or infection (redness or drainage at incision, worsening pain/nausea/vomiting/fever). * Go to the Emergency Room after hours for severe symptoms. MEDICATIONS * Use Tylenol (acetaminophen) and Motrin (ibuprofen) on a scheduled basis for the first 3-5 days, then on as "as needed" basis as pain decreases. * Use Oxycodone (a narcotic) for breakthrough pain. Do not drive while taking Oxycodone. * Oxycodone will cause constipation - drink plenty of water, and use [id number] Miralax twice a day as needed. ANESTHESIA PRECAUTIONS * Anesthesia and medications given during surgery remain in your body up to 24 hours. This may slow reaction time and/or decrease coordination. FOR THE NEXT 24 HOURS: * Have a responsible person with you * Avoid any activity that requires you to be alert and coordinated * DO NOT DRIVE a motor vehicle for 24 hours or as long as you are taking opioid pain medication * Do not drink alcoholic beverages * Do not smoke unattended Patient Date Escort Date RN Date Print Language: Danish Patient Instructions: Surg Dc Follow-up Care: Derik Gordon DO [Primary Care Provider, Family Practice] Soha Cannon DO [Provider Admit Priv/Credential, Surgery, General] Vitals documented within 30 minutes of discharge?: Yes
[2025-03-04 20:40] VITALS: BP 176/124; TEMP 97.2; O2SAT 97
== END 2025-03-04 18:45 | disposition home or self-care (01) | DRG 394 ==
LOC: SDS 09:24 → MS2 09:24
PROVIDERS: ADMIT Surgery; ATTEND Surgery
DX: K62.1 Rectal polyp; R00.0 Tachycardia, unspecified; N82.4 Other female intestinal-genital tract fistulae; K56.699 Other intestinal obstruction unspecified as to partial versus complete obstruction; Z90.710 Acquired absence of both cervix and uterus; G89.29 Other chronic pain; K57.20 Diverticulitis of large intestine with perforation and abscess without bleeding; I10 Essential (primary) hypertension; K59.00 Constipation, unspecified; N82.3 Fistula of vagina to large intestine; K57.30 Diverticulosis of large intestine without perforation or abscess without bleeding